=== PATIENT | female | born 1995 | race Caucasian/White ===

== ENCOUNTER 2017-01-21 10:09 | Emergency (ER) | payer SELFPAY ==
[~2017-01-21] VITALS: Ht 152.4 cm; Wt 70.0 kg
[2017-01-21] MEDS ORDERED: KETOROLAC 30MG/ML VIAL IM ONE (14:30)
[2017-01-21] MEDS ORDERED: HYDROCODONE/ACETAMINOPHEN 5/325MG TABLET PO ONE (15:00)
[2017-01-21 16:03] VITALS: BP 109/67
== END 2017-01-21 18:07 | disposition home or self-care (01) ==
LOC: ER 12:33
DX: R51 Headache (principal); M25.531 Pain in right wrist; V43.62XA Car passenger injured in collision with other type car in traffic accident, initial encounter; Y93.89 Activity, other specified; Y92.488 Other paved roadways as the place of occurrence of the external cause
CPT/HCPCS: 29125; 73030; 73090; 73110; 73130; 73502; 81025; 99284; Z7610; J1885